=== PATIENT | female | born 1985 | race American Indian/Alaskan Native ===

== ENCOUNTER 2017-12-27 14:01 | Emergency (ER) | payer BC ==
[2017-12-27 16:13] VITALS: BP 126/72
[2017-12-27] MEDS ORDERED: NORCO 7.5/325 PO ONE (17:44)
--- NOTE | 2017-12-27 17:44 | Emergency Department Report ---
ED ENT HPI - General Chief complaint: Dental/Oral Stated complaint: TOOTHACHE/SWELLING Time Seen by Provider: 12/27/17 17:04 Source: patient Mode of arrival: Ambulatory Limitations: No Limitations - History of Present Illness Initial comments: This is a 32 y.o. female that presents with right side facial swelling and toothache for 2 days. Patient reports pain as 10/10 throbbing sensation. She tried to walk into [facility] today and they told her they don't take walk-ins on Friday and to return on Friday. She is taking goody's and ibuprofen for pain with no improvement of symptoms. Denies difficulty swallowing , SOB, fever, chest pain, and drooling. MD complaint: tooth pain -: days(s) (2) Location: tooth # (30) 1 - dental caries and partial fracture, missing half of tooth Severity: severe Severity scale (0 -10): 10 Quality: sharp, other (throbbing) Consistency: constant Improves with: none Worsens with: eating, movement Context- Dental: history of dental caries Associated Symptoms: gum swelling, toothache. denies: fever, cough, pain with swallowing, sore throat, tinnitus, hearing loss, discharge from ear, rhinorrhea - Related Data Previous Rx's Medication Instructions Recorded Last Taken Type Famotidine [Pepcid] 20 mg PO BID #14 tablet 12/25/14 Unknown Rx hydrOXYzine PAMOATE [Vistaril] 50 mg PO Q6HR PRN #30 capsule 12/25/14 Unknown Rx Amoxicillin/Potassium Clav 1 each PO BID 7 Days #14 tablet 12/27/17 Unknown Rx [Augmentin 875-125 Tablet] traMADol [Ultram 50 MG tab] 50 mg PO Q6HR PRN #20 tablet 12/27/17 Unknown Rx Allergies Allergy/AdvReac Type Severity Reaction Status Date / Time No Known Allergies Allergy Verified 12/27/17 14:01 ED Dental HPI - General Chief complaint: Dental/Oral Stated complaint: TOOTHACHE/SWELLING Time Seen by Provider: 12/27/17 17:04 Source: patient Mode of arrival: Ambulatory Limitations: No Limitations - Related Data Previous Rx's Medication Instructions Recorded Last Taken Type Famotidine [Pepcid] 20 mg PO BID #14 tablet 12/25/14 Unknown Rx hydrOXYzine PAMOATE [Vistaril] 50 mg PO Q6HR PRN #30 capsule 12/25/14 Unknown Rx Amoxicillin/Potassium Clav 1 each PO BID 7 Days #14 tablet 12/27/17 Unknown Rx [Augmentin 875-125 Tablet] traMADol [Ultram 50 MG tab] 50 mg PO Q6HR PRN #20 tablet 12/27/17 Unknown Rx Allergies Allergy/AdvReac Type Severity Reaction Status Date / Time No Known Allergies Allergy Verified 12/27/17 14:01 ED Review of Systems ROS: Stated complaint: TOOTHACHE/SWELLING Other details as noted in HPI Constitutional: denies: chills, fever ENT: dental pain. denies: ear pain, throat pain, congestion Respiratory: denies: cough, shortness of breath, wheezing Cardiovascular: denies: chest pain, palpitations Gastrointestinal: denies: abdominal pain, nausea, vomiting, diarrhea Neurological: denies: headache, weakness, paresthesias Psychiatric: denies: anxiety, depression ED Past Medical Hx - Past Medical History Previous Medical History?: No - Surgical History Past Surgical History?: No - Social History Smoking Status: Never Smoker Substance Use Type: Alcohol - Medications Home Medications: Home Medications Medication Instructions Recorded Confirmed Last Taken Type Famotidine [Pepcid] 20 mg PO BID #14 tablet 12/25/14 Unknown Rx hydrOXYzine PAMOATE [Vistaril] 50 mg PO Q6HR PRN #30 capsule 12/25/14 Unknown Rx Amoxicillin/Potassium Clav 1 each PO BID 7 Days #14 tablet 12/27/17 Unknown Rx [Augmentin 875-125 Tablet] traMADol [Ultram 50 MG tab] 50 mg PO Q6HR PRN #20 tablet 12/27/17 Unknown Rx ED Physical Exam - General Limitations: No Limitations General appearance: alert, in no apparent distress - ENT ENT exam: Present: mucous membranes moist, other (dental caries #30, 1/2 tooth avulsion) - Neck Neck exam: Present: full ROM, lymphadenopathy (cervical lymph nodes, tender, mobile) - Respiratory Respiratory exam: Present: normal lung sounds bilaterally. Absent: respiratory distress - Cardiovascular Cardiovascular Exam: Present: regular rate, normal rhythm, normal heart sounds. Absent: systolic murmur, diastolic murmur, rubs, gallop - GI/Abdominal GI/Abdominal exam: Present: soft, normal bowel sounds. Absent: distended, tenderness, guarding, rebound, rigid, organomegaly, mass - Neurological Exam Neurological exam: Present: alert, oriented X3, normal gait - Psychiatric Psychiatric exam: Present: normal affect, normal mood - Skin Skin exam: Present: warm, dry, intact, normal color. Absent: rash ED Course Vital Signs 12/27/17 12/27/17 12/27/17 14:01 16:00 17:52 Temperature 99.3 F Pulse Rate 85 68 Respiratory 16 18 Rate Blood Pressure 168/91 126/72 O2 Sat by Pulse 98 99 Oximetry 12/27/17 18:49 Temperature Pulse Rate Respiratory 18 Rate Blood Pressure O2 Sat by Pulse Oximetry ED Medical Decision Making - Medical Decision Making This is a 32-year-old female that presents with toothache and right side facial swelling for 2 days. Patient is stable and was examined by me. Given norco 7.5 mg po once in ER. Susceptible of dental avulsion and dental caries #30. Start augmentin and tramadol. Discussed plan with patient. She agreed with ER plan. Discharged home. Follow up with dentist and referral to [facility]. Critical care attestation.: If time is entered above; I have spent that time in minutes in the direct care of this critically ill patient, excluding procedure time. ED Disposition Clinical Impression: Dental caries Tooth avulsion Qualifiers: Encounter type: initial encounter Qualified Code(s): S03.2XXA - Dislocation of tooth, initial encounter Disposition: TO HOME OR SELFCARE Is pt being admited?: No Does the pt Need Aspirin: No Condition: Stable Instructions: Acute dental trauma (ED), Toothache (ED) Additional Instructions: Complete all days of augmentin as prescribed for 7 days. Take tramadol for pain every 6 hours as needed. Follow up with Dentist at [facility] in 24-72 hours. Prescriptions: Amoxicillin/Potassium Clav [Augmentin 875-125 Tablet] 1 each PO BID 7 Days #14 tablet traMADol [Ultram 50 MG tab] 50 mg PO Q6HR PRN #20 tablet PRN Reason: Pain Referrals: [facility] [Outside] - 3-5 Days [facility] [Outside] - 3-5 Days [facility] [Outside] - 3-5 Days Time of Disposition: 18:31 Print Language: MONGOLIAN
== END 2017-12-27 18:48 | disposition home or self-care (01) ==
LOC: ED 14:01
DX: S03.2XXA Dislocation of tooth, initial encounter (principal); K02.9 Dental caries, unspecified; X58.XXXA Exposure to other specified factors, initial encounter; Y93.89 Activity, other specified; Y92.89 Other specified places as the place of occurrence of the external cause; Y99.8 Other external cause status
CPT/HCPCS: 99282

== ENCOUNTER 2019-11-15 13:32 | Emergency (ER) | payer BC ==
[2019-11-15 14:34] VITALS: BP 139/56
--- NOTE | 2019-11-15 14:38 | Event Note ---
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
--- NOTE | 2019-11-15 14:39 | Emergency Department Report ---
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 no numbness, no weakness, no bowel or bladder incontinence no fever no urinary sx no n/v/d no steroids no SOB no CP no hx of cancer PMHx low iron no allergies to meds states she has had this in the past and saw her primary care doctor at that time - Related Data Previous Rx's Medication Instructions Recorded Last Taken Type Famotidine [Pepcid] 20 mg PO BID #14 tablet 12/25/14 Unknown Rx hydrOXYzine PAMOATE [Vistaril] 50 mg PO Q6HR PRN #30 capsule 12/25/14 Unknown Rx Amoxicillin/Potassium Clav 1 each PO BID 7 Days #14 tablet 12/27/17 Unknown Rx [Augmentin 875-125 Tablet] traMADoL [Ultram 50 MG tab] 50 mg PO Q6HR PRN #20 tablet 12/27/17 Unknown Rx Amoxicillin/Potassium Clav 1 each PO BID 10 Days #20 tablet 09/01/18 Unknown Rx [Augmentin 875-125 Tablet] Fluticasone [Flonase] 1 spray NS QDAY #1 bottle 09/01/18 Unknown Rx Ibuprofen [Ibuprofen 800] 800 mg PO TID PRN #30 tablet 09/01/18 Unknown Rx Allergies Allergy/AdvReac Type Severity Reaction Status Date / Time No Known Allergies Allergy Verified 12/27/17 14:01 ED Review of Systems ROS: Stated complaint: SEVERE BACK PAIN Other details as noted in HPI Comment: All other systems reviewed and negative ED Past Medical Hx - Past Medical History Previous Medical History?: Yes Hx Hypertension: No Hx CVA: No Hx Heart Attack/AMI: No Hx Congestive Heart Failure: No Hx Diabetes: No Hx Deep Vein Thrombosis: No Hx Pulmonary Embolism: No Hx GERD: No Hx Liver Disease: No Hx Renal Disease: No Hx Sickle Cell Disease: No Hx Arthritis: No Hx Headaches / Migraines: No Hx Seizures: No Hx Kidney Stones: No Hx Psychiatric Treatment: No Hx Asthma: No Hx COPD: No Hx Tuberculosis: No Hx Dementia: No Hx HIV: No Additional medical history: anemia - Surgical History Past Surgical History?: No Hx Coronary Stent: No Hx Open Heart Surgery: No Hx Pacemaker: No Hx Internal Defibrillator: No Hx Cholecystectomy: No Hx Appendectomy: No Hx Breast Surgery: No - Social History Smoking Status: Never Smoker Substance Use Type: None - Medications Home Medications: Home Medications Medication Instructions Recorded Confirmed Last Taken Type Famotidine [Pepcid] 20 mg PO BID #14 tablet 12/25/14 Unknown Rx hydrOXYzine PAMOATE [Vistaril] 50 mg PO Q6HR PRN #30 capsule 12/25/14 Unknown R x Amoxicillin/Potassium Clav 1 each PO BID 7 Days #14 tablet 12/27/17 Unknown Rx [Augmentin 875-125 Tablet] traMADoL [Ultram 50 MG tab] 50 mg PO Q6HR PRN #20 tablet 12/27/17 Unknown Rx Amoxicillin/Potassium Clav 1 each PO BID 10 Days #20 tablet 09/01/18 Unknown Rx [Augmentin 875-125 Tablet] Fluticasone [Flonase] 1 spray NS QDAY #1 bottle 09/01/18 Unknown Rx Ibuprofen [Ibuprofen 800] 800 mg PO TID PRN #30 tablet 09/01/18 Unknown Rx ED Physical Exam - General Limitations: No Limitations General appearance: alert, in no apparent distress - Head Head exam: Present: atraumatic, normocephalic - Eye Eye exam: Present: normal appearance - ENT ENT exam: Present: mucous membranes moist - Neck Neck exam: Present: normal inspection, tenderness (left sided c-spine muscular paraspinal ttp, no midline C-spine ttp, no step offs, no deformities), full ROM - Respiratory Respiratory exam: Present: normal lung sounds bilaterally. Absent: respiratory distress, wheezes, rales, rhonchi, stridor, chest wall tenderness, accessory muscle use, decreased breath sounds, prolonged expiratory - Cardiovascular Cardiovascular Exam: Present: regular rate, normal rhythm, normal heart sounds. Absent: systolic murmur, diastolic murmur, rubs, gallop - Back Exam Back exam: Present: normal inspection, full ROM, paraspinal tenderness (left sided T-spine muscular TTP, no midline T-spine or L-spine ttp, no step offs, no deformities). Absent: vertebral tenderness - Neurological Exam Neurological exam: Present: alert, oriented X3, CN II-XII intact, normal gait. 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 Patient has no red flag warning signs of back pain, she denies any trauma, unexplained weight loss, neurological symptoms, age is not greater than 50, no fever, no IV drug use, no steroid use, no history of cancer. She is not having any chest pain or shortness of breath. Her vitals are normal. Examination consistent with muscle strain. PERC criteria negative for PE. advised pt may alt ernate ibuprofen then tylenol every 6-8 hours. may use ice pack for 15 minutes, heating pad for 15 minutes, rest, epsom salt bath, stretching. follow up with an orthopedic doctor if symptoms are not improving. return to the emergency room for any new or worsening symptoms. Medical screening examination performed and there is no threat to life or limb at this time Discussed symptomatic treatment with patient Patient referred to the appropriate resources Discussed strict return precautions with patient in detail - Differential Diagnosis muscle strain, sprain, DDD, DJD, bulging disc, herniated disc, spondylolist Critical care attestation.: If time is entered above; I have spent that time in minutes in the direct care of this critically ill patient, excluding procedure time. ED Disposition Clinical Impression: Cervical muscle strain Qualifiers: Encounter type: initial encounter Qualified Code(s): S16.1XXA - Strain of muscle, fascia and tendon at neck level, initial encounter Thoracic myofascial strain Qualifiers: Encounter type: initial encounter Qualified Code(s): S29.019A - Strain of muscle and tendon of unspecified wall of thorax, initial encounter Disposition: MED SCREENING EXAM-LEFT Is pt being admited?: No Does the pt Need Aspirin: No Condition: Stable Instructions: Muscle Strain (ED) Additional Instructions: may alternate ibuprofen then tylenol every 6-8 hours. may use ice pack for 15 minutes, heating pad for 15 minutes, rest, epsom salt bath, stretching. follow up with an orthopedic doctor if symptoms are not improving. return to the emergency room for any new or worsening symptoms. [facility] Orthopedic surgeon in [place], [place] Address: [address] [place] [address] Azam Mohr MD Orthopedic surgeon in [place], [place] Address: [facility] [place] [address] [facility] Address: [facility] [place] [address] Referrals: [facility] [Provider Group] - 2-3 Days NATALIE GRAMAJO MD [Staff Physician] - 2-3 Days Forms: Work/School Release Form(ED) Time of Disposition: 14:41 Print Language: SLOVENIAN
== END 2019-11-15 15:33 | disposition left against medical advice (07) ==
LOC: ED 13:32
DX: S16.1XXA Strain of muscle, fascia and tendon at neck level, initial encounter (principal); S29.019A Strain of muscle and tendon of unspecified wall of thorax, initial encounter; D64.9 Anemia, unspecified; Z79.899 Other long term (current) drug therapy; X58.XXXA Exposure to other specified factors, initial encounter; Y93.89 Activity, other specified; Y92.89 Other specified places as the place of occurrence of the external cause; Y99.8 Other external cause status
CPT/HCPCS: 99281